=== PATIENT | male | born 1975 | race Hispanic/Latino ===

== ENCOUNTER 2018-04-12 03:52 | Inpatient (IN) | payer OTHER ==
[~2018-04-12] VITALS: Ht 177.8 cm; Wt 106.1 kg
[~2018-04-12 03:52] MED LIST: AEC81 PO; DAPA5TAB PO; FURO20TA6 PO; METF-444 PO; METO25 PO; ROSU10TA PO; TRAM50TA4 PO
[2018-04-12 04:14] LABS: BASOPHILS % (AUTO) 0.7 % (0.0-5.0); EOSINOPHILS % (AUTO) 1.8 % (0.0-8.0); HEMATOCRIT 42.7 % (42-54); MEAN CORPUSCULAR HEMOGLOBIN 27.8 pg (27.0-33.0); MEAN CORPUSCULAR HGB CONC 33.7 g/dL (32.0-36.0); MEAN CORPUSCULAR VOLUME 82.5 fL (79-99); MONOCYTES % (AUTO) 8.8 % (3.0-13.0); NEUTROPHILS % (AUTO) 60.7 % (40.0-77.0); PLATELET COUNT (AUTO) 214 K/uL (130-400); RED BLOOD CELL COUNT(AUTO) 5.18 MIL/uL (4.50-6.20); RED CELL DISTRIBUTION WIDTH 13.6 % (11.0-15.5); WHITE BLOOD COUNT (AUTO) 8.5 K/uL (4.8-10.8)
[2018-04-12] MEDS ORDERED: ASPIRIN 325 MG TABLET ONE (04:14)
[2018-04-12] MEDS ORDERED: ONDANSETRON HCL 4 MG/2 ML VIAL ONE (04:20)
[2018-04-12] MEDS ORDERED: MORPHINE SULFATE 4 MG/1ML SYG ONE (04:21)
[2018-04-12 04:25] LABS: CREATININE 0.9 mg/dL (0.5-1.5); POTASSIUM 4.1 mmol/L (3.5-5.1)
[2018-04-12 04:39] LABS: ALBUMIN 3.4 g/dL (3.5-5.0); BILIRUBIN,TOTAL 0.4 mg/dL (0.2-1.0); CREATINE KINASE MB 1.2 ng/mL (0.5-3.6); INR 1.06 (0.85-1.15); PROTHROMBIN TIME 11.1 SEC (9.6-11.6); TOTAL PROTEIN, SERUM 6.7 g/dL (6.0-8.3)
[2018-04-12 05:00] LABS: APPEARANCE,URINE Clear (CLEAR); BILIRUBIN,URINE Negative (NEGATIVE); COLOR,URINE Yellow (YELLOW); GLUCOSE, URINE (UA) 500 mg/dL (NEGATIVE); KETONES,URINE Negative (NEGATIVE); LEUKOCYTE ESTERASE ,URINE Negative (NEGATIVE); NITRATE,URINE Negative (NEGATIVE); OCCULT BLOOD,URINE Small (NEGATIVE); PROTEIN,URINE Negative (NEGATIVE); UROBILINOGEN,URINE 0.2 mg/dL (0.2-1.0)
[2018-04-12 05:10] LABS: BACTERIA,URINE None Seen /HPF (None Seen); MUCUS,URINE Rare LPF (None Seen); RBC,URINE 0-1 /HPF (0-1); SQUAMOUS EPITHELIAL CELL,UR Rare /HPF (0-2); WBC,URINE None Seen /HPF (0-1)
[2018-04-12 11:40] LABS: CREATINE KINASE MB 1.2 ng/mL (0.5-3.6); CREATINE KINASE, TOTAL 42 U/L (21-232); MYOGLOBIN 22 ng/mL (10-92); TROPONIN I < 0.04 ng/mL (0.00-0.06)
[2018-04-12] MEDS ORDERED: TRAMADOL HCL 50 MG TABLET PO PRN (11:45)
[2018-04-12 12:40] VITALS: BP 125/82
[2018-04-12] MEDS: CLINDAMYCIN 600 MG/D5% WATER 50 ML IV SCH ×2 (15:20→19:30)
[2018-04-12 16:00] VITALS: BP 127/85
[2018-04-12] MEDS: INSULIN HUMULIN R 100 UNIT/ML 3ML SQ SCH ×2 (16:30→21:00)
[2018-04-12 20:59] VITALS: BP 120/64
[2018-04-12] MEDS ORDERED: ATORVASTATIN CALCIUM 20 MG TABLET PO SCH (21:00)
[2018-04-12] MEDS ORDERED: METOPROLOL TARTRATE 25 MG TAB PO SCH (21:00)
[2018-04-12] MEDS: METOPROLOL TARTRATE 50 MG TAB PO SCH ×2 (21:00→21:48)
[2018-04-12] MEDS: FAMOTIDINE 20MG TAB 20 MG TAB PO SCH (21:48)
[2018-04-12 23:53] VITALS: BP 122/65
[2018-04-13] MEDS: CLINDAMYCIN 600 MG/D5% WATER 50 ML IV SCH ×2 (03:42→11:56)
[2018-04-13 04:15] LABS: BASOPHILS % (AUTO) 0.8 % (0.0-5.0); EOSINOPHILS % (AUTO) 1.5 % (0.0-8.0); HEMATOCRIT 42.1 % (42-54); LYMPHOCYTES % (AUTO) 29.7 % (21.0-51.0); MEAN CORPUSCULAR HEMOGLOBIN 28.2 pg (27.0-33.0); MEAN CORPUSCULAR VOLUME 83.2 fL (79-99); MONOCYTES % (AUTO) 9.7 % (3.0-13.0); NEUTROPHILS % (AUTO) 58.3 % (40.0-77.0); PLATELET COUNT (AUTO) 235 K/uL (130-400); RED BLOOD CELL COUNT(AUTO) 5.06 MIL/uL (4.50-6.20); RED CELL DISTRIBUTION WIDTH 13.9 % (11.0-15.5); WHITE BLOOD COUNT (AUTO) 8.2 K/uL (4.8-10.8)
[2018-04-13 04:27] VITALS: BP 123/72
[2018-04-13 04:28] LABS: HEMOGLOBIN A1C 6.3 % (4.0-6.0)
[2018-04-13 04:31] LABS: CREATININE 0.9 mg/dL (0.5-1.5); MAGNESIUM 2.3 mg/dL (1.80-2.40); POTASSIUM 3.8 mmol/L (3.5-5.1)
[2018-04-13] MEDS: INSULIN HUMULIN R 100 UNIT/ML 3ML SQ SCH ×2 (06:07→11:30)
[2018-04-13 07:43] VITALS: BP 139/81
[2018-04-13] MEDS: METOPROLOL TARTRATE 50 MG TAB PO SCH (08:30)
[2018-04-13] MEDS: FAMOTIDINE 20MG TAB 20 MG TAB PO SCH (08:31)
[2018-04-13] MEDS ORDERED: FUROSEMIDE 20 MG TABLET PO SCH (09:00)
[2018-04-13] MEDS ORDERED: ENOXAPARIN SODIUM 40 MG/0.4 ML SYRINGE SQ SCH (09:00)
[2018-04-13] MEDS ORDERED: ASPIRIN 325 MG TABLET PO SCH (09:00)
[2018-04-13 12:00] VITALS: BP 135/81
[2018-04-13 16:00] VITALS: BP 143/85
[2018-04-13] MEDS ORDERED: CLIN300C9 PO (18:42)
[2018-04-13] MEDS ORDERED: METO25TA6 PO (18:42)
[2018-04-13 19:20] VITALS: BP 127/92
== END 2018-04-13 19:42 | disposition home or self-care (01) | DRG 309 ==
LOC: EDH 03:52 → EDHIP 05:40 → 4BH 12:49
PROVIDERS: ADMIT Internal Medicine; ATTEND Internal Medicine
DX: I49.3 Ventricular premature depolarization (principal); I50.20 Unspecified systolic (congestive) heart failure; L02.31 Cutaneous abscess of buttock; R07.89 Other chest pain; E11.9 Type 2 diabetes mellitus without complications; E66.9 Obesity, unspecified; E78.5 Hyperlipidemia, unspecified; I11.0 Hypertensive heart disease with heart failure; I25.10 Atherosclerotic heart disease of native coronary artery without angina pectoris; Z82.3 Family history of stroke; Z82.49 Family history of ischemic heart disease and other diseases of the circulatory system; Z95.1 Presence of aortocoronary bypass graft; Z83.3 Family history of diabetes mellitus; Z68.33 Body mass index [BMI] 33.0-33.9, adult; Z79.82 Long term (current) use of aspirin; Z79.84 Long term (current) use of oral hypoglycemic drugs; Z79.899 Other long term (current) drug therapy; Z28.21 Immunization not carried out because of patient refusal
CPT/HCPCS: 36415; 71045; 71275; 76857; 80048; 80053; 81001; 82550; 82553; 82948; 83036; 83735; 83874; 83880; 84484; 85025; 85610; 85730; 93005; 93306; J1650; J2270; J2405; J3490

== ENCOUNTER → 2019-01-31 | Outpatient (CLI) | payer OTHER ==
[~2019-01-31] MED LIST changes: +CLIN300C9 PO; +IOHEXOL 350 MG/ML 100ML INFUS..BTL IV ONE; -METO25 PO; +METO25TA6 PO; +METOPROLOL TARTRATE 1 MG/ML 5ML VIAL IV ONE; -ROSU10TA PO; +ROSU10TA22 PO
== END | disposition home or self-care (01) ==
LOC: RAH 01-24 07:35
PROVIDERS: ATTEND Internal Medicine Cardiovascular Disease
DX: I11.9 Hypertensive heart disease without heart failure (principal); K44.9 Diaphragmatic hernia without obstruction or gangrene; M47.815 Spondylosis without myelopathy or radiculopathy, thoracolumbar region
CPT/HCPCS: 75574; J3490; Q9967